=== PATIENT | female | born 1980 | race Caucasian/White ===

== ENCOUNTER → 2017-01-18 | Outpatient (CLI) | payer MEDICAID ==
--- NOTE | 2017-01-18 16:08 | REP ---
FIRST TRIMESTER ULTRASOUND: Real-time sonographic evaluation of the gravid uterus is performed utilizing transabdominal and endovaginal technique. There is a single living intrauterine gestation. The estimated gestational age is 6 weeks 4 days based on crown rump length of 7 mm. EDC 09/09/2017. heart rate os 101 beats per minute. There is a small subchorionic hemorrhage present which measures about 1 cm in length and about 5 mm in thickness. A complex corpus luteum is noted in the right ovary approximately 2 cm in diameter with no evidence of ovarian torsion. Blood flow is seen in each ovary with duplex Doppler evaluation. Signed by Morgan Hughes MD 01/18/2017 04:10 P
== END ==
LOC: M RAD 15:11
PROVIDERS: ATTEND Nurse Practitioner Women's Health
DX: Z36.2 Encounter for other antenatal screening follow-up (principal)

== ENCOUNTER → 2017-04-01 | Outpatient (CLI) | payer OTHER ==
[2017-04-01 20:07] LABS: BASO # 0.1 10^3/uL (0.0-0.2); BASO % 1.2 % (0.0-1.0); EOS # 0.3 10^3/uL (0.0-0.50); EOS % 7.4 % (0.0-3.0); HEMATOCRIT 36.8 % (36.0-47.0); HEMOGLOBIN 12.2 g/dl (12.0-16.0); MEAN CORPUSCULAR HEMOGLOBIN 31.3 pg (27.0-33.0); MEAN CORPUSCULAR HGB CONC 33.2 g/dl (32.0-36.5); MEAN CORPUSCULAR VOLUME 94.4 fl (80.0-96.0); MONO # 0.4 10^3/uL (0.0-0.8); MONO % 9.5 % (0.0-5.0); NEUTROPHILS # 1.5 10^3/uL (1.8-7.7); NEUTROPHILS % 34.9 % (36.0-66.0); PLATELET COUNT, AUTOMATED 271 10^3/uL (150-450); RED CELL DISTRIBUTION WIDTH 11.5 % (11.5-14.5); WHITE BLOOD COUNT 4.2 10^3/uL (4.0-10.0)
[2017-04-01 20:23] LABS: HCG, SERUM QUANTITATIVE 12 MIU/ML
== END ==
LOC: M WUC 15:47
DX: J06.9 Acute upper respiratory infection, unspecified (principal); N91.2 Amenorrhea, unspecified
CPT/HCPCS: 84702

== ENCOUNTER → 2017-04-03 | Outpatient (CLI) | payer OTHER ==
[2017-04-03 18:38] LABS: HCG, SERUM QUANTITATIVE 4 MIU/ML
== END ==
LOC: M WUC 11:23
DX: N91.2 Amenorrhea, unspecified (principal)
CPT/HCPCS: 84702

== ENCOUNTER → 2019-03-14 | Outpatient (REF) | payer BC ==
[2019-03-14 15:35] LABS: CHLAMYDIA DNA AMPLIFICATION NEGATIVE (NEGATIVE); GC DNA AMPLIFICATION NEGATIVE (NEGATIVE)
== END ==
LOC: M LAB REF 13:02
PROVIDERS: ATTEND Nurse Practitioner Family
DX: Z01.419 Encounter for gynecological examination (general) (routine) without abnormal findings (principal)

== ENCOUNTER → 2019-08-31 | Outpatient (CLI) | payer BC | LOC: M LABSMTC 13:05 | PROVIDERS: ATTEND Orthopaedic Surgery | DX: Z03.818 Encounter for observation for suspected exposure to other biological agents ruled out (principal); Z11.59 Encounter for screening for other viral diseases ==

== ENCOUNTER 2019-11-06 10:54 | Emergency (ER) | payer BC ==
[~2019-11-06] VITALS: Ht 157.5 cm; Wt 52.3 kg
[2019-11-06] MEDS ORDERED: TETRACAINE 0.5% OPHTH SOLN 4ML OS ONE (11:15)
[2019-11-06] MEDS ORDERED: FLUORESCEIN OPHTH 1 MG STRIP OS ONE (11:15)
[2019-11-06] MEDS ORDERED: PANT40TA29 (11:23)
[2019-11-06] MEDS ORDERED: HYDR-643 (11:23)
[2019-11-06] MEDS ORDERED: ACUV0.45 OS (11:43)
[2019-11-06] MEDS ORDERED: CIPR0.3S6 OS (11:43)
[2019-11-06] MEDS ORDERED: AKWA1OIN OP (11:43)
[2019-11-06] MEDS ORDERED: KETOROLAC 0.5% OPHTH SOLN OS ONE (11:45)
[2019-11-06 14:00] VITALS: BP 128/74
== END 2019-11-06 14:01 | disposition short-term general hospital (02) ==
LOC: M ED 10:54
DX: S05.02XA Injury of conjunctiva and corneal abrasion without foreign body, left eye, initial encounter (principal); Z97.3 Presence of spectacles and contact lenses; X58.XXXA Exposure to other specified factors, initial encounter; Y92.89 Other specified places as the place of occurrence of the external cause; Y93.89 Activity, other specified; Y99.8 Other external cause status; F32.9 Major depressive disorder, single episode, unspecified; Z79.899 Other long term (current) drug therapy

== ENCOUNTER 2019-11-11 02:33 | Emergency (ER) | payer BC ==
[~2019-11-11] VITALS: Ht 157.5 cm; Wt 52.0 kg
[~2019-11-11 02:33] MED LIST: ACUV0.45 OS; AKWA1OIN OP; CIPR0.3S6 OS; HYDR-643; PANT40TA29
[2019-11-11] MEDS ORDERED: MOXI0.5S OU (02:42)
[2019-11-11 03:04] LABS: BASO % 0.6 % (0.0-1.0); EOS # 0.2 10^3/uL (0.0-0.5); EOS % 2.9 % (0.0-3.0); HEMATOCRIT 35.1 % (36.0-47.0); HEMOGLOBIN 11.7 g/dl (12.0-15.5); LYMPH % 14.1 % (24.0-44.0); MEAN CORPUSCULAR HEMOGLOBIN 31.5 pg (27.0-33.0); MEAN CORPUSCULAR HGB CONC 33.3 g/dl (32.0-36.5); MEAN CORPUSCULAR VOLUME 94.4 fl (80.0-96.0); MONO # 0.4 10^3/uL (0.0-0.8); MONO % 5.4 % (0.0-5.0); NEUTROPHILS # 5.5 10^3/uL (1.5-8.5); NEUTROPHILS % 76.7 % (36.0-66.0); PLATELET COUNT, AUTOMATED 252 10^3/uL (150-450); RED BLOOD COUNT 3.72 10^6/uL (4.00-5.40); WHITE BLOOD COUNT 7.2 10^3/uL (4.0-10.0)
[2019-11-11] MEDS ORDERED: PANTOPRAZOLE 40MG VIAL (C9113 PER 1) IV ONE (03:15)
[2019-11-11 03:33] LABS: ALBUMIN 3.9 GM/DL (3.2-5.2); ALT/SGPT 115 U/L (12-78); BILIRUBIN,DIRECT 0.3 MG/DL (0.0-0.2); BILIRUBIN,TOTAL 0.4 MG/DL (0.2-1.0); BLOOD UREA NITROGEN 13 MG/DL (7-18); CALCIUM LEVEL 9.2 MG/DL (8.5-10.1); CARBON DIOXIDE LEVEL 26 MEQ/L (21-32); CHLORIDE LEVEL 107 MEQ/L (98-107); CREATININE FOR GFR 0.63 MG/DL (0.55-1.30); GLOMERULAR FILTRATION RATE > 60.0 (>60); GLUCOSE, FASTING 97 MG/DL (70-100); LIPASE 247 U/L (73-393); POTASSIUM SERUM 3.9 MEQ/L (3.5-5.1); SODIUM LEVEL 139 MEQ/L (136-145); TOTAL PROTEIN 7.6 GM/DL (6.4-8.2)
[2019-11-11 04:01] LABS: HCG, SERUM QUALITATIVE NEGATIVE (NEGATIVE)
--- NOTE | 2019-11-11 04:47 | REPVR ---
PROCEDURE INFORMATION: Exam: XR Complete Acute Abdomen Series Exam date and time: 11/11/2019 4:27 AM Age: 39 years old Clinical indication: Other: Epigastric pain, R/O perf ulcer TECHNIQUE: Imaging protocol: XR complete acute abdomen series, including 2 or more views of the abdomen and a single view chest. COMPARISON: No relevant prior studies available. FINDINGS: Lungs: Normal. No consolidation. Pleural space: Normal. No pneumothorax. Heart/Mediastinum: Normal. No cardiomegaly. Gastrointestinal tract: Normal. No bowel dilation. Intraperitoneal space: No free air to suggest perforation of viscous. Bones/joints: Normal. No acute fracture. Soft tissues: Normal. IMPRESSION: No free air to suggest perforation of viscous. Electronically signed by: Papito Foley On 11/11/2019 04:47:16 AM
--- NOTE | 2019-11-11 04:59 | REPVR ---
PROCEDURE INFORMATION: Exam: US Abdomen, Limited; Right Upper Quadrant Exam date and time: 11/11/2019 4:49 AM Age: 39 years old Clinical indication: Abdominal pain; Epigastric; Additional info: Epigastric pain TECHNIQUE: Imaging protocol: US abdomen. Real time ultrasound with image documentation. Limited exam focused on the right upper quadrant. COMPARISON: Abdomen, limited US 2014-03-05 17:42 FINDINGS: Liver: Benign left hepatic lobe 1 cm liver cyst. Gallbladder: Negative sonographic Mendez sign. No gallstones or wall thickening. Common bile duct: Normal. No stones. No dilation. Pancreas: Visualized pancreas is unremarkable. Right kidney: Normal. No mass. No hydronephrosis. IMPRESSION: Normal gallbladder. Electronically signed by: Papito Foley On 11/11/2019 04:59:15 AM
[2019-11-11] MEDS ORDERED: GI COCKTAIL 50ML BTL(HYOSCYAMINE/MAALOX/LIDOCAINE VISCOUS)(1:3:1) PO ONE (05:00)
[2019-11-11] MEDS ORDERED: ONDANSETRON 4MG/2ML VIAL IV ONE (06:30)
[2019-11-11] MEDS ORDERED: MORPHINE 2 MG/ML 1ML VIAL (J2270) IV PRN (06:30)
[2019-11-11 06:32] LABS: ETHYL ALCOHOL (ETHANOL) 0.012 % (0.000-0.010)
[2019-11-11] MEDS ORDERED: ISOVUE-370 76% 100ML VIAL As Ordered ONE (07:14)
[2019-11-11] MEDS: GASTROGRAFIN SOLUTION 30ML PO SCH ×2 (07:21→08:08)
--- NOTE | 2019-11-11 08:52 | REPVR ---
PROCEDURE INFORMATION: Exam: CT Abdomen And Pelvis With Contrast Exam date and time: 11/11/2019 6:21 AM Age: 39 years old Clinical indication: Abdominal pain; Generalized; Additional info: Pancreatitis TECHNIQUE: Imaging protocol: Computed tomography of the abdomen and pelvis with intravenous contrast. Radiation optimization: All CT scans at this facility use at least one of these dose optimization techniques: automated exposure control; mA and/or kV adjustment per patient size (includes targeted exams where dose is matched to clinical indication); or iterative reconstruction. Contrast material: ISOVUE 370; Contrast volume: 100 ml; Contrast route: INTRAVENOUS (IV); COMPARISON: GALLBLADDER US 11/11/2019 4:38 AM FINDINGS: Liver: Multiple circumscribed hypodense lesions in the liver measuring up to 10 mm. Gallbladder and bile ducts: Normal. No calcified stones. No ductal dilation. Pancreas: Normal. No ductal dilation. Spleen: Normal. No splenomegaly. Adrenals: Normal. No mass. Kidneys and ureters: Normal. No hydronephrosis. Stomach and bowel: Severe stool in the colon. Moderate stool in the colon. No abnormal bowel dilatation. No abnormal bowel wall thickening. Negative for colonic diverticulitis. Appendix: Appendix is normal. Intraperitoneal space: Unremarkable. No free air. No significant fluid collection. Vasculature: Unremarkable. No abdominal aortic aneurysm. Lymph nodes: Unremarkable. No enlarged lymph nodes. Bladder: Unremarkable as visualized. Reproductive: Uterus is normal. Bones/joints: Unremarkable. No acute fracture. Soft tissues: Small umbilical hernia containing fat. There is no evidence of strangulation. IMPRESSION: 1. Pancreas unremarkable. 2. Multiple circumscribed hypodense lesions in the liver. Probable cysts. No follow-up is necessary. 3. Small umbilical hernia containing fat. Electronically signed by: Gee Davenport On 11/11/2019 08:51:50 AM
[2019-11-11] MEDS ORDERED: SUCR1SS PO (08:59)
[2019-11-11 09:07] VITALS: BP 120/61
== END 2019-11-11 09:08 | disposition home or self-care (01) ==
LOC: M ED 02:33
DX: R10.13 Epigastric pain (principal); R11.2 Nausea with vomiting, unspecified; K21.9 Gastro-esophageal reflux disease without esophagitis; Z79.899 Other long term (current) drug therapy; Z79.2 Long term (current) use of antibiotics
CPT/HCPCS: 74021; 74177; 76705; 80048; 80076; 83690; 84703; 85025; 96374; 96375; 99284; C9113; G0480; J2270; J2405; Q9963; Q9967

== ENCOUNTER → 2020-01-22 | Outpatient (CLI) | payer SELFPAY ==
[~2020-01-22] MED LIST changes: +MOXI0.5S OU; +SUCR1SS PO
== END ==
LOC: M LABSMTC 12:44
PROVIDERS: ATTEND Pediatrics
DX: Z20.828 Contact with and (suspected) exposure to other viral communicable diseases (principal)

== ENCOUNTER → 2020-02-19 | Outpatient (CLI) | payer BC | LOC: M LABSMTC 14:02 | PROVIDERS: ATTEND Family Medicine | DX: Z20.828 Contact with and (suspected) exposure to other viral communicable diseases (principal) ==

== ENCOUNTER 2021-03-28 07:28 | Outpatient (RCR) | payer BC ==
[~2021-03-28 07:28] MED LIST changes: +ATIV1TAB7 PO; +BACT800T5 PO; +LIDO1CRE42; +MORP15TA2 PO; -PANT40TA29; +PANT40TA29 PO; +PERC5TAB12 PO; +PROC10TA5 PO; +SERT50TA29 PO
== END 2021-03-31 ==
LOC: M ONCR 07:28
PROVIDERS: ATTEND General Practice
DX: C50.412 Malignant neoplasm of upper-outer quadrant of left female breast (principal)

== ENCOUNTER → 2021-04-28 | Outpatient (RCR) | payer BC | LOC: M ONCR 04-02 07:35 | PROVIDERS: ATTEND General Practice | DX: C50.412 Malignant neoplasm of upper-outer quadrant of left female breast (principal) ==

== ENCOUNTER 2021-05-21 11:28 | Outpatient (RCR) | payer BC ==
[~2021-05-21 11:28] MED LIST changes: +TAMO20TA8 PO; +TRIA1CR80 TOP
== END 2021-05-29 ==
LOC: M ONCR 11:28
PROVIDERS: ATTEND General Practice
DX: C50.412 Malignant neoplasm of upper-outer quadrant of left female breast (principal)

== ENCOUNTER → 2021-08-05 | Outpatient (CLI) | payer BC ==
[~2021-08-05] MED LIST changes: -ACUV0.45 OS; +KETO1DRO OS; +LORA-674; +VERZ150T PO
== END ==
LOC: M RAD 08:19
PROVIDERS: ATTEND Internal Medicine Medical Oncology
DX: C50.912 Malignant neoplasm of unspecified site of left female breast (principal)
CPT/HCPCS: 78306; A9503

== ENCOUNTER → 2021-08-18 | Outpatient (CLI) | payer BC ==
[~2021-08-18] MED LIST changes: +LIDOCAINE 1% MDV 20ML VIAL As Ordered ONE; +LORA-674 PO
[2021-08-18 08:20] LABS: BASO # 0.1 10^3/uL (0.0-0.2); BASO % 1.8 % (0.0-1.0); EOS # 0.3 10^3/uL (0.0-0.5); EOS % 11.8 % (0.0-3.0); HEMATOCRIT 36.2 % (36.0-47.0); HEMOGLOBIN 12.1 g/dl (12.0-15.5); LYMPH # 0.8 10^3/uL (1.5-5.0); LYMPH % 30.3 % (24.0-44.0); MEAN CORPUSCULAR HEMOGLOBIN 33.1 pg (27.0-33.0); MEAN CORPUSCULAR HGB CONC 33.4 g/dl (32.0-36.5); MEAN CORPUSCULAR VOLUME 98.9 fl (80.0-96.0); MONO # 0.3 10^3/uL (0.0-0.8); NEUTROPHILS # 1.3 10^3/uL (1.5-8.5); NEUTROPHILS % 46.1 % (36.0-66.0); PLATELET COUNT, AUTOMATED 252 10^3/uL (150-450); RED BLOOD COUNT 3.66 10^6/uL (4.00-5.40); WHITE BLOOD COUNT 2.7 10^3/uL (4.0-10.0)
[2021-08-18 08:37] VITALS: BP 112/73
== END ==
LOC: M IRPRO 07:32
PROVIDERS: ATTEND Internal Medicine Medical Oncology
DX: C50.912 Malignant neoplasm of unspecified site of left female breast (principal)

== ENCOUNTER → 2021-09-23 | Outpatient (POV) | payer BC ==
[~2021-09-23] VITALS: Ht 157.5 cm; Wt 50.0 kg
[~2021-09-23] MED LIST changes: -LIDOCAINE 1% MDV 20ML VIAL As Ordered ONE; +ONDA4TAB6 PO; +VERZ150T
[2021-09-23 10:25] VITALS: BP 128/84
== END ==
LOC: M IRPOV 10:16
PROVIDERS: ATTEND Radiology Diagnostic Radiology
DX: Z45.2 Encounter for adjustment and management of vascular access device (principal); Z85.3 Personal history of malignant neoplasm of breast; Z90.13 Acquired absence of bilateral breasts and nipples; Z90.710 Acquired absence of both cervix and uterus; Z92.21 Personal history of antineoplastic chemotherapy; Z92.3 Personal history of irradiation; Z88.8 Allergy status to other drugs, medicaments and biological substances

== ENCOUNTER → 2021-10-01 | Outpatient (CLI) | payer BC | LOC: M LABSMTC 09:41 | PROVIDERS: ATTEND Anesthesiology | DX: Z11.52 Encounter for screening for COVID-19 (principal) ==

== ENCOUNTER → 2022-04-12 | Outpatient (CLI) | payer BC ==
[~2022-04-12] MED LIST changes: +VENL37TA PO
== END ==
LOC: M LABSMTC 10:26
PROVIDERS: ATTEND Anesthesiology
DX: Z01.818 Encounter for other preprocedural examination (principal); Z11.52 Encounter for screening for COVID-19

== ENCOUNTER 2022-04-14 11:47 | Day surgery (SDC) | payer BC ==
[~2022-04-14] VITALS: Ht 157.5 cm; Wt 52.6 kg
[2022-04-14] MEDS ORDERED: LIDOCAINE 2% 100MG/5ML SDV (FOR ANES.) As Ordered ONE (13:40)
[2022-04-14] MEDS ORDERED: propofoL 200 MG/20 ML VIAL As Ordered ONE ×3 (13:40→13:59)
[2022-04-14 14:42] VITALS: BP 110/71
== END 2022-04-14 14:51 | disposition home or self-care (01) ==
LOC: M OPP 11:47
PROVIDERS: ATTEND Internal Medicine Gastroenterology
DX: D12.6 Benign neoplasm of colon, unspecified (principal); K63.89 Other specified diseases of intestine; K64.4 Residual hemorrhoidal skin tags; K64.8 Other hemorrhoids; K29.70 Gastritis, unspecified, without bleeding; K21.00 Gastro-esophageal reflux disease with esophagitis, without bleeding; K44.9 Diaphragmatic hernia without obstruction or gangrene; Z15.09 Genetic susceptibility to other malignant neoplasm; Z79.810 Long term (current) use of selective estrogen receptor modulators (SERMs); Z79.899 Other long term (current) drug therapy; Z88.8 Allergy status to other drugs, medicaments and biological substances; Z85.3 Personal history of malignant neoplasm of breast; Z80.0 Family history of malignant neoplasm of digestive organs; Z80.3 Family history of malignant neoplasm of breast; Z92.21 Personal history of antineoplastic chemotherapy; Z92.3 Personal history of irradiation

== ENCOUNTER → 2022-05-19 | Outpatient (CLI) | payer BC, OTHER ==
[~2022-05-19] VITALS: Ht 157.5 cm; Wt 55.9 kg
[2022-05-19 14:39] VITALS: BP 129/77
== END ==
LOC: M PAL 14:30
PROVIDERS: ATTEND Nurse Practitioner Adult Health
DX: C50.412 Malignant neoplasm of upper-outer quadrant of left female breast (principal); Z90.13 Acquired absence of bilateral breasts and nipples; Z51.5 Encounter for palliative care; F41.9 Anxiety disorder, unspecified; K21.9 Gastro-esophageal reflux disease without esophagitis; Z80.0 Family history of malignant neoplasm of digestive organs; G89.3 Neoplasm related pain (acute) (chronic); Z92.21 Personal history of antineoplastic chemotherapy; Z90.710 Acquired absence of both cervix and uterus; Z88.8 Allergy status to other drugs, medicaments and biological substances; Z79.899 Other long term (current) drug therapy

== ENCOUNTER → 2022-06-17 | Outpatient (REF) | payer BC ==
[~2022-06-17] MED LIST changes: +CIPR0.3S37 OS; -CIPR0.3S6 OS
[2022-06-17 12:12] LABS: BASO # 0.1 10^3/uL (0.0-0.2); BASO % 1.9 % (0.0-1.0); EOS # 0.3 10^3/uL (0.0-0.5); EOS % 12.5 % (0.0-3.0); HEMOGLOBIN 11.6 g/dl (12.0-15.5); LYMPH % 38.3 % (24.0-44.0); MEAN CORPUSCULAR HEMOGLOBIN 32.8 pg (27.0-33.0); MEAN CORPUSCULAR HGB CONC 33.1 g/dl (32.0-36.5); MEAN CORPUSCULAR VOLUME 98.9 fl (80.0-96.0); MONO # 0.2 10^3/uL (0.0-0.8); MONO % 8.3 % (2.0-8.0); PLATELET COUNT, AUTOMATED 263 10^3/uL (150-450); RED BLOOD COUNT 3.54 10^6/uL (4.00-5.40); WHITE BLOOD COUNT 2.6 10^3/uL (4.0-10.0)
== END ==
LOC: M LABDRAWC 11:25
PROVIDERS: ATTEND Internal Medicine Medical Oncology
DX: C50.919 Malignant neoplasm of unspecified site of unspecified female breast (principal)

== ENCOUNTER → 2022-10-26 | Outpatient (CLI) | payer BC ==
[~2022-10-26] MED LIST changes: -LIDO1CRE42; +LIDO30CR18
== END ==
LOC: M PLARAD 09:58
PROVIDERS: ATTEND Internal Medicine Hematology & Oncology
DX: C50.919 Malignant neoplasm of unspecified site of unspecified female breast (principal)

== ENCOUNTER → 2023-05-19 | Outpatient (CLI) | payer BC, OTHER ==
[~2023-05-19] VITALS: Ht 157.5 cm; Wt 52.8 kg
[~2023-05-19] MED LIST changes: +FEZO45TA PO; +LORA-1041; +LORA-1041 PO; -LORA-674; -LORA-674 PO
[2023-05-19 10:42] VITALS: BP 116/66; O2SAT 96
== END ==
LOC: M PAL 10:34
PROVIDERS: ATTEND Nurse Practitioner Adult Health
DX: C50.412 Malignant neoplasm of upper-outer quadrant of left female breast (principal); F43.23 Adjustment disorder with mixed anxiety and depressed mood; K59.09 Other constipation; R23.2 Flushing; Z51.5 Encounter for palliative care; Z79.899 Other long term (current) drug therapy; Z80.0 Family history of malignant neoplasm of digestive organs; Z88.8 Allergy status to other drugs, medicaments and biological substances; Z90.13 Acquired absence of bilateral breasts and nipples; Z90.710 Acquired absence of both cervix and uterus; Z90.79 Acquired absence of other genital organ(s); Z92.21 Personal history of antineoplastic chemotherapy; Z92.3 Personal history of irradiation

== ENCOUNTER → 2023-05-26 | Outpatient (CLI) | payer BC | LOC: M WHC 10:21 | PROVIDERS: ATTEND Internal Medicine Medical Oncology | DX: M81.0 Age-related osteoporosis without current pathological fracture (principal) ==